=== PATIENT | female | born 2005 | race Two or more races ===

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

== ENCOUNTER 2025-01-10 05:14 | Inpatient (IN) | payer OTHER ==
[~2025-01-10] VITALS: Ht 152.4 cm; Wt 73.0 kg
[~2025-01-10 05:14] MED LIST: PRENATAL TABLE1 EAC4 PO
[2025-01-10] MEDS ORDERED: AMPICILLIN SODIUM 2,000 MG VIAL ONE (05:16)
[2025-01-10 05:35] VITALS: BP 122/69
[2025-01-10] MEDS ORDERED: RINGERS SOLUTION,LACTATED 1,000 ML IV SCH ×2 (06:30→21:15)
[2025-01-10] MEDS ORDERED: AMPICILLIN SODIUM 2,000 MG VIAL IV ONE (06:30)
[2025-01-10 06:54] LABS: URINE APPEARANCE Clear; URINE BILIRRUBIN Negative (NEGATIVE); URINE BLOOD Negative; URINE COLOR Yellow; URINE GLUCOSE Negative (NEGATIVE); URINE KETONE Negative (NEGATIVE); URINE LEUKOCYTE Small; URINE NITRATE Negative; URINE PROTEIN Negative (NEGATIVE); URINE UROBILINOGEN 1.0 E.U./dl
[2025-01-10 06:55] LABS: BASO % 0.5 % (0.1-1.2); EOS # 0.06 (0.04-0.54); EOS % 0.5 % (0.7-7.0); LYMPH # 2.17 (1.18-3.74); LYMPH % 17.2 % (19.3-53.1); MEAN PLATELET VOLUME 12.30 fl (9.4-12.4); MONO # 0.90 (0.24-0.82); MONO % 7.1 % (4.7-12.5); NEUT # 9.39 (1.56-6.13); NEUT % 74.2 % (34.0-71.1); RED CELL DISTRIBUTION WIDTH 15.7 % (11.6-14.4)
[2025-01-10 06:58] LABS: URINE BACTERIA 319.1 uL (0.0-1933); URINE EPITHELIAL CELLS 37.8 uL (0.0-38.8); URINE WBC 51.0 uL (0.0-23.2)
[2025-01-10 07:04] LABS: URINE CAST 0.00 uL (0.0-1.40); URINE RBC 1.4 uL (0.0-20.8)
[2025-01-10 07:07] LABS: INR < 0.93
[2025-01-10 07:40] VITALS: BP 122/72
[2025-01-10] MEDS ORDERED: AMPICILLIN SODIUM 1,000 MG VIAL IV SCH (09:00)
[2025-01-10 11:17] VITALS: BP 106/75
[2025-01-10] MEDS ORDERED: OXYTOCIN 20 UNITS/500ML RL PIGGYBAG IV SCH (12:30)
[2025-01-10 15:26] VITALS: BP 135/71
[2025-01-10] MEDS ORDERED: MORPHINE SULFATE 4 MG/ML CARTRIDGE IV STA (16:15)
[2025-01-10] MEDS ORDERED: OXYTOCIN 10 UNITS/ML VIAL ONE (18:32)
[2025-01-10] MEDS ORDERED: ERYTHROMYCIN BASE OPHT 1GM EACH TUBE OP ONE (18:33)
[2025-01-10 18:49] VITALS: BP 136/74
[2025-01-10] MEDS ORDERED: CEFAZOLIN SODIUM 1,000 MG VIAL ONE (18:49)
[2025-01-10] MEDS ORDERED: KETOROLAC TROMETHAMINE 60 MG VIAL IM STA (21:08)
[2025-01-10] MEDS ORDERED: CHLORHEXIDINE GLUCONATE 120 ML BOTTLE TOP SCH (21:15)
[2025-01-10] MEDS ORDERED: OXYTOCIN 1,000 ML IV SCH (21:15)
[2025-01-10] MEDS ORDERED: AMPICILLIN SODIUM 1,000 MG VIAL ONE ×2 (22:48→23:47)
[2025-01-10 23:02] LABS: BASO % 0.1 % (0.1-1.2); EOS # 0.00 (0.04-0.54); EOS % 0.0 % (0.7-7.0); LYMPH # 1.40 (1.18-3.74); LYMPH % 7.3 % (19.3-53.1); MEAN PLATELET VOLUME 11.90 fl (9.4-12.4); MONO # 1.10 (0.24-0.82); MONO % 5.7 % (4.7-12.5); NEUT # 16.59 (1.56-6.13); NEUT % 86.0 % (34.0-71.1); RED CELL DISTRIBUTION WIDTH 15.8 % (11.6-14.4)
[2025-01-11] MEDS ORDERED: OXYTOCIN 10 UNITS/ML VIAL ONE (01:56)
[2025-01-11 03:00] VITALS: BP 134/82
[2025-01-11 09:02] VITALS: BP 115/75
[2025-01-11] MEDS ORDERED: FERROUS SULFATE 325 MG TABLET.EC PO SCH (12:39)
[2025-01-11] MEDS ORDERED: PNV,CALCIUM 72/IRON/FOLIC ACID 1 TAB TABLET PO SCH (12:39)
[2025-01-11 19:40] VITALS: BP 134/86
[2025-01-11] MEDS ORDERED: ACETAMINOPHEN 325 MG TABLET PO PRN (21:30)
[2025-01-11] MEDS ORDERED: OxyCODONE HCL 5 MG TABLET (ROXICODONE) PO PRN (21:30)
[2025-01-12] VITALS: BP 144/81
[2025-01-12 08:14] VITALS: BP 128/83
[2025-01-12 18:16] VITALS: BP 116/70
[2025-01-13 00:09] VITALS: BP 91/63
[2025-01-13 05:02] VITALS: BP 100/64
[2025-01-13 08:40] VITALS: BP 120/61
== END 2025-01-13 14:15 | disposition home or self-care (01) | DRG 788 ==
LOC: LDR → O/R 19:50 → OB/GYN 22:22
PROVIDERS: ADMIT Obstetrics & Gynecology; ATTEND Obstetrics & Gynecology
PROC: 4A1HXCZ Monitoring of Products of Conception, Cardiac Rate, External Approach (ICD-10-PCS; 2025-01-10)
PROC: 10D00Z1 Extraction of Products of Conception, Low, Open Approach (ICD-10-PCS; principal; 2025-01-10 22:00)
DX: O82 Encounter for cesarean delivery without indication (principal); O62.0 Primary inadequate contractions; Z3A.38 38 weeks gestation of pregnancy; Z37.0 Single live birth